=== PATIENT | female | born 1985 | race Caucasian/White ===

== ENCOUNTER 2023-11-07 08:15 | Outpatient (CLI) | payer BC | END 2023-11-07 08:16 | disposition home or self-care (01) | LOC: CSHMAMMO 08:15 | PROVIDERS: ATTEND Obstetrics & Gynecology | DX: Z12.31 Encounter for screening mammogram for malignant neoplasm of breast (principal) | CPT/HCPCS: 77063; 77067 ==

== ENCOUNTER 2025-03-29 11:23 | Outpatient (CLI) | payer BC ==
[2025-03-29 12:11] LABS: Hematocrit 39.0 % (34.9-44.5); Hemoglobin 12.8 g/dL (12.0-15.5); Mean Corpuscular Hemoglobin 28.7 pg (27.0-33.0); Mean Corpuscular Volume 87.4 fL (81.6-98.3); Platelet Count 254 10x3/uL (150-450); Red Blood Cell (RBC) Count 4.46 10x6/uL (3.90-5.03); White Blood Cell (WBC) Count 7.11 10x3/uL (3.5-10.5)
[2025-03-29 12:22] LABS: BHCG - Serum Negative (NEGATIVE); Pregs Control Background? CLEAR/WHITE (CLR/WHITE); Pregs Control Bar Appear? YES (CONTROL BAR)
[2025-03-29 12:26] LABS: Anion Gap 11 mmol/L (10-20); BUN (Urea Nitrogen) 14 mg/dL (7.0-18.7); Calc. Creatinine Clearance 0 mL/min (70-130); Calcium 8.7 mg/dL (7.8-10.44); Carbon Dioxide 26 mmol/L (22-29); Chloride 107 mmol/L (98-107); Glucose 89 mg/dL (70-105); Potassium 4.0 mmol/L (3.5-5.1); Sodium 140 mmol/L (136-145)
== END 2025-03-29 11:24 | disposition home or self-care (01) ==
LOC: CSHLAB 11:23
PROVIDERS: ATTEND Obstetrics & Gynecology
DX: Z01.812 Encounter for preprocedural laboratory examination (principal); N87.1 Moderate cervical dysplasia
CPT/HCPCS: 80048; 84703; 85027

== ENCOUNTER 2025-04-01 11:00 | Day surgery (SDC) | payer BC ==
[2025-03-29 12:03] VITALS: BMI 31.9
[~2025-04-01 11:00] MED LIST: Bupivacaine HCl 0.5%/Epinephrine 1:200,000/PF 30 ml Vial ONE; CEFAZOLIN 2 GM VIAL ONE; Ferric Subsulfate 8 ML TOPICAL SOLN ONE; Lidocaine 1% PF 5 ML VIAL ONE; PROPOFOL 40 ML ONE
[2025-04-01] MEDS ORDERED: Lidocaine 1% PF 5 ML VIAL ONE (13:36)
[2025-04-01] MEDS ORDERED: PROPOFOL 40 ML ONE (13:36)
[2025-04-01] MEDS ORDERED: Bupivacaine HCl 0.5%/Epinephrine 1:200,000/PF 30 ml Vial ONE (13:42)
[2025-04-01] MEDS ORDERED: Ferric Subsulfate 8 ML TOPICAL SOLN ONE (13:43)
[2025-04-01] MEDS ORDERED: CEFAZOLIN 2 GM VIAL ONE (13:52)
[2025-04-01] MEDS ORDERED: Ketorolac Tromethamine 30 MG (1 mL) VIAL ONE (14:37)
== END 2025-04-01 16:50 | disposition home or self-care (01) ==
LOC: CSHSDC 11:00
PROVIDERS: ATTEND Obstetrics & Gynecology
PROC: 0UBC7ZZ Excision of Cervix, Via Natural or Artificial Opening (ICD-10-PCS; principal; 2025-04-01)
DX: N87.1 Moderate cervical dysplasia (principal); R87.810 Cervical high risk human papillomavirus (HPV) DNA test positive; F41.9 Anxiety disorder, unspecified
CPT/HCPCS: 88305; 88307; J1100; J1885; J2250; J2704